=== PATIENT | male | born 1995 | race African-American/Black ===

== ENCOUNTER 2017-05-14 03:05 | Emergency (ER) | payer SELFPAY ==
[~2017-05-14] VITALS: Ht 172.7 cm; Wt 68.0 kg
[2017-05-14 03:05] VITALS: BP 134/99
[~2017-05-14 03:05] MED LIST: NKM
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
[2017-05-14 04:25] VITALS: BP 129/82
--- NOTE | 2017-05-14 10:15 | Diagnostic Imaging Report ---
Indication: Head trauma. Headache. Technique: Contiguous 5 mm thick transaxial imaging of the head obtained in a Siem[employer] Sensation [address] scanner. Soft tissue and bone windows generated. Total Dose length Product (DLP): [address] Dose Index Volume (CTDIvol): 70.38 mGy Comparison: none Findings: The size and configuration of the cortical sulci, basal cisterns, and ventricles are within normal limits for age. There is no mass effect, midline shift, or edema identified. There is no evidence of acute hemorrhage or abnormal intra-axial or extra-axial fluid collections. The bones and soft tissues are unremarkable. Right frontal soft tissue laceration noted. Impression: No mass effect, edema or acute bleed. The CT scanner at [facility] is accredited by the [employer] and the scans are performed using dose optimization techniques as appropriate to a performed exam including Automatic Exposure control.
== END 2017-05-14 04:25 | disposition home or self-care (01) ==
LOC: EDBD 03:05 → EMR 03:26
DX: S09.90XA Unspecified injury of head, initial encounter (principal); S01.111A Laceration without foreign body of right eyelid and periocular area, initial encounter; W22.8XXA Striking against or struck by other objects, initial encounter; Y93.9 Activity, unspecified; Y92.009 Unspecified place in unspecified non-institutional (private) residence as the place of occurrence of the external cause
CPT/HCPCS: 70450; 99284